=== PATIENT | female | born 1950 | race Caucasian/White ===

== ENCOUNTER 2016-08-03 05:40 | Inpatient (IN) | payer OTHER ==
[~2016-08-03] VITALS: Ht 165.1 cm; Wt 81.2 kg
[~2016-08-03 05:40] MED LIST: CALTRATE 6001 TABLE1 PO; CEFTIN500 MG PO; CLOPIDOGREL75 MG PO; COMBIVENT RESPIM4 GM IH; COREG3.125 M1 PO; ENDOCET 5-3251 EACH PO; ESTRACE42.5 GM VG; FLONASE16 G1 BOTH NARES; FOLIC ACID1 MG PO; GRALISE600 MG PO; HYDROCHLOROTHIA25 MG PO; LEVOTHYROXINE50 MCG PO; LEXAPRO20 MG PO; LIDOCAINE700 MG TD; LIPITOR20 MG PO; LYRICA75 MG PO; MICROZIDE12.5 M1 PO; NAMENDA XR28 MG PO; NEURONTIN300 MG PO; NEURONTIN600 MG PO; NORVASC5 MG PO; PERCOCET 7.51 TABLET PO; PLAVIX75 MG PO; SEROQUEL200 MG PO; SEROQUEL300 MG PO; VITAMIN B12 100MCG PO; VITAMIN E400 UNIT PO; VITAMIN E600 UNIT PO; ZANAFLEX4 M1 PO
[2016-08-03 06:45] VITALS: BP 112/62
[2016-08-03 18:22] VITALS: BP 113/66
[2016-08-03 20:33] VITALS: BP 109/56
[2016-08-03 23:58] VITALS: BP 103/65
[2016-08-04 04:01] VITALS: BP 98/70
[2016-08-04 08:01] VITALS: BP 95/55
[2016-08-04 11:14] VITALS: BP 93/52
[2016-08-04 15:54] VITALS: BP 119/56
[2016-08-04 20:33] VITALS: BP 116/56
[2016-08-04 23:56] VITALS: BP 175/87
[2016-08-05 04:30] VITALS: BP 123/57
[2016-08-05 08:04] VITALS: BP 137/83
[2016-08-05 11:40] VITALS: BP 126/59
[2016-08-05 16:58] VITALS: BP 130/78
[2016-08-06] VITALS (7 sets, daily range): BP systolic 91–123; BP diastolic 48–78
[2016-08-06] MEDS ORDERED: OXYCONTIN15 MG PO (16:55)
[2016-08-06] MEDS ORDERED: OXYCODONE HCL5 MG PO (16:55)
[2016-08-06] MEDS ORDERED: DIAZEPAM5 MG PO (16:55)
[2016-08-06] MEDS ORDERED: OXYCODONE-APAP1 EACH PO (16:55)
[2016-08-06] MEDS ORDERED: LYRICA75 MG PO (16:55)
[2016-08-07 04:00] VITALS: BP 118/72
[2016-08-07 08:11] VITALS: BP 139/63
[2016-08-07 13:00] VITALS: BP 105/57
== END 2016-08-07 14:00 | DRG 460 ==
LOC: 2SOUTH 05:40 → 3EAST 05:40 → 2SOUTH 09:15 → 3EAST 18:21
PROC: 0SG307J Fusion of Lumbosacral Joint with Autologous Tissue Substitute, Posterior Approach, Anterior Column, Open Approach (ICD-10-PCS; principal; 2016-08-03)
DX: M43.17 Spondylolisthesis, lumbosacral region (principal); M48.07 Spinal stenosis, lumbosacral region; I10 Essential (primary) hypertension; M62.830 Muscle spasm of back; M54.16 Radiculopathy, lumbar region; G89.18 Other acute postprocedural pain; E78.5 Hyperlipidemia, unspecified; J44.9 Chronic obstructive pulmonary disease, unspecified; Z87.891 Personal history of nicotine dependence
CPT/HCPCS: 72100; 76000; 86850; 86870; 86900; 86901; 86905; 86920; 94640; 94640 76; 94799; 95886; 95938; 97530 GP; 99202; C1713; C1821; J0330; J0690; J1100; J1170; J1580; J1885; J2250; J2405; J3010; J3480

== ENCOUNTER → 2017-08-03 | Outpatient (CLI) | payer OTHER ==
[~2017-08-03] MED LIST changes: +DIAZEPAM5 MG PO; +OXAYDO7.5 MG PO; +OXYCODONE HCL5 MG PO; +OXYCODONE-APAP1 EACH PO; +OXYCONTIN15 MG PO
== END | disposition home or self-care (01) ==
LOC: CDC 11:41
DX: Z01.810 Encounter for preprocedural cardiovascular examination (principal)
CPT/HCPCS: 93000